=== PATIENT | male | born 1950 | race Hispanic/Latino ===

== ENCOUNTER 2019-09-02 18:09 | Emergency (ER) | payer OTHER ==
[~2019-09-02 18:09] MED LIST: EPINEPHRINE 0.1 MG/ML 10 ML SYG ONE
--- NOTE | 2019-09-04 15:31 | NUR ---
INFECTION CONTROL-HEALTH DEPT NOTIFIED ABOUT PT EXPIRING IN ER. SPOKE TO Sara MUIR WITH [facility] THEY ARE AWARE OF CASE.
== END 2019-09-02 20:30 | disposition expired ==
LOC: EDH 18:09 → EDBD 18:09 → EDH 20:30
DX: I46.9 Cardiac arrest, cause unspecified (principal); Z03.818 Encounter for observation for suspected exposure to other biological agents ruled out; E11.9 Type 2 diabetes mellitus without complications; I10 Essential (primary) hypertension; Z72.0 Tobacco use
CPT/HCPCS: 92950; 96374; 99291; J0171